=== PATIENT | female | born 1970 | race Caucasian/White ===

== ENCOUNTER 2018-11-19 11:21 | Emergency (ER) | payer OTHER ==
[~2018-11-19] VITALS: Ht 152.4 cm; Wt 77.3 kg
[~2018-11-19 11:21] MED LIST: ALBU17AE27 IH; FLUT220HFA IH; SALMH IH
[2018-11-19] MEDS ORDERED: AMLO10TA7 PO (11:29)
[2018-11-19] MEDS ORDERED: AZITHROMYCIN 250 MG TABLET PO ONE (12:30)
[2018-11-19] MEDS ORDERED: IBUPROFEN 800 MG TABLET PO ONE (12:30)
[2018-11-19 13:10] VITALS: BP 120/84
== END 2018-11-19 13:15 | disposition home or self-care (01) ==
LOC: EMS 11:24
DX: H66.92 Otitis media, unspecified, left ear (principal); J45.909 Unspecified asthma, uncomplicated; I10 Essential (primary) hypertension; Z98.51 Tubal ligation status; Z88.1 Allergy status to other antibiotic agents; Z91.013 Allergy to seafood

== ENCOUNTER 2021-09-22 13:21 | Emergency (ER) | payer OTHER ==
[~2021-09-22] VITALS: Ht 152.4 cm; Wt 65.9 kg
[~2021-09-22 13:21] MED LIST changes: +AMLO-258 PO; +SALM50DI2 IH; -SALMH IH
[2021-09-22] MEDS ORDERED: NAPR-1025 PO (15:54)
[2021-09-22] MEDS ORDERED: KETOROLAC TROMETHAMINE 10 MG TABLET PO ONE (16:00)
[2021-09-22 16:23] VITALS: BP 127/84
== END 2021-09-22 16:15 | disposition home or self-care (01) ==
LOC: EMS 13:21
DX: S63.502A Unspecified sprain of left wrist, initial encounter (principal); E78.00 Pure hypercholesterolemia, unspecified; I10 Essential (primary) hypertension; W19.XXXA Unspecified fall, initial encounter; Y93.89 Activity, other specified; Y92.89 Other specified places as the place of occurrence of the external cause; Y99.8 Other external cause status; Z98.890 Other specified postprocedural states
CPT/HCPCS: 99283; 99284

== ENCOUNTER 2023-03-19 09:07 | Emergency (ER) | payer OTHER ==
[~2023-03-19] VITALS: Ht 154.9 cm; Wt 68.2 kg
[~2023-03-19 09:07] MED LIST changes: +FLUT12AE18 IH; -FLUT220HFA IH; +NAPR-1025 PO
[2023-03-19 09:10] VITALS: BP 152/95; PULSE 72; RESP 16; TEMP 98.8
[2023-03-19] MEDS ORDERED: HYDR-4723 PO (11:06)
[2023-03-19] MEDS ORDERED: VALA500T42 PO (11:06)
[2023-03-19] MEDS ORDERED: PRED-554 PO (11:06)
== END 2023-03-19 11:49 | disposition home or self-care (01) ==
LOC: EMS 09:38
DX: B02.9 Zoster without complications (principal); E78.00 Pure hypercholesterolemia, unspecified; I10 Essential (primary) hypertension; Z98.890 Other specified postprocedural states; Z91.013 Allergy to seafood; Z88.8 Allergy status to other drugs, medicaments and biological substances
CPT/HCPCS: 99283

== ENCOUNTER 2023-03-30 11:00 | Emergency (ER) | payer OTHER ==
[~2023-03-30] VITALS: Ht 152.4 cm; Wt 72.7 kg
[~2023-03-30 11:00] MED LIST changes: +HYDR-4723 PO; +PRED-554 PO; +VALA500T42 PO
[2023-03-30 11:19] VITALS: TEMP 98.1
[2023-03-30] MEDS ORDERED: ONDANSETRON HCL 4 MG/2 ML VIAL IVP ONE (11:45)
[2023-03-30] MEDS ORDERED: KETOROLAC TROMETHAMINE 30 MG/ML VIAL IVP ONE (11:45)
[2023-03-30] MEDS ORDERED: SODIUM CHLORIDE 0.9% 1,000 ML IV ONE ×2 (11:45→12:45)
[2023-03-30 11:55] LABS: BASOPHILS % (AUTO) 0.7 % (0.0-2.0); HEMATOCRIT 45.6 % (36-46); HEMOGLOBIN 15.4 g/dL (12.0-16.0); LYMPHOCYTES # (AUTO) 4.2 K/uL (1.0-4.8); LYMPHOCYTES % (AUTO) 33.6 % (22.0-44.0); MEAN CORPUSCULAR HEMOGLOBIN 30.8 pg (26.0-34.0); MEAN CORPUSCULAR HGB CONC 33.7 G/dL (31.0-37.0); MEAN CORPUSCULAR VOLUME 91 fL (80-100); MONOCYTES # (AUTO) 1.2 K/uL (0.1-1.0); MONOCYTES % (AUTO) 9.3 % (2.0-9.0); NEUTROPHILS # (AUTO) 6.7 K/uL (1.8-7.7); NEUTROPHILS % (AUTO) 53.4 % (40.0-70.0); PLATELET COUNT (AUTO) 316 K/uL (150-450); WHITE BLOOD COUNT (AUTO) 12.6 K/uL (4.5-11.0)
[2023-03-30 12:01] LABS: CALCIUM, TOTAL 8.9 mg/dL (8.8-10.5); CREATININE 1.06 mg/dL (0.60-1.30); POTASSIUM 3.4 mmol/L (3.5-5.1)
[2023-03-30 13:08] LABS: APPEARANCE,URINE HAZY (CLEAR); BILIRUBIN,URINE NEGATIVE (NEGATIVE); COLOR,URINE COLORLESS (YELLOW); GLUCOSE, URINE (UA) NEGATIVE (NEGATIVE); KETONES,URINE NEGATIVE (NEGATIVE); LEUKOCYTE ESTERASE ,URINE LARGE (NEGATIVE); NITRATE,URINE NEGATIVE (NEGATIVE); OCCULT BLOOD,URINE NEGATIVE (NEGATIVE); PH,URINE 6.5 (5.0-8.0); PROTEIN,URINE NEGATIVE (NEGATIVE); SPECIFIC GRAVITIY, URINE 1.003 (1.003-1.030); UROBILINOGEN,URINE <=1.0 mg/dL (<=1.0)
[2023-03-30 13:31] LABS: BACTERIA,URINE Few /HPF (None Seen); RBC,URINE None Seen /HPF (0-2); SQUAMOUS EPITHELIAL CELL,UR Few /LPF (None Seen)
[2023-03-30] MEDS ORDERED: IBUP-1492 PO (13:43)
[2023-03-30] MEDS ORDERED: ONDA-104 PO (13:43)
[2023-03-30] MEDS ORDERED: CIPR500T10 PO (13:43)
[2023-03-30 13:56] VITALS: BP 137/82; PULSE 88; RESP 18
== END 2023-03-30 14:00 | disposition home or self-care (01) ==
LOC: EMS 11:00
DX: N12 Tubulo-interstitial nephritis, not specified as acute or chronic (principal); E78.00 Pure hypercholesterolemia, unspecified; I10 Essential (primary) hypertension; Z98.890 Other specified postprocedural states; Z91.013 Allergy to seafood; Z88.8 Allergy status to other drugs, medicaments and biological substances
CPT/HCPCS: 99285; 74176; 96374; 96361; 96375; 80048; 81001; 85025; 36415; 87086; 87186; J1885; J2405; J7030

== ENCOUNTER 2023-06-24 14:55 | Emergency (ER) | payer OTHER ==
[~2023-06-24] VITALS: Ht 152.4 cm; Wt 75.0 kg
[~2023-06-24 14:55] MED LIST changes: +CIPR500T10 PO; +IBUP-1492 PO; -NAPR-1025 PO; +ONDA-104 PO
[2023-06-24 16:09] LABS: COVID AG,FIA SOURCE NASAL SWAB
[2023-06-24 16:20] LABS: ANION GAP 9 mmol/L (8-16); CALCIUM, TOTAL 9.7 mg/dL (8.8-10.5); CARBON DIOXIDE 28 mmol/L (22-29); CHLORIDE 104 mmol/L (98-107); GLOMERULAR FILTR. RATE CALC > 60 mL/min (>60); GLUCOSE,RANDOM 93 mg/dL (70-110); POTASSIUM 3.2 mmol/L (3.5-5.1); SODIUM SERUM 141 mmol/L (136-145); UREA NITROGEN, BLOOD 9 mg/dL (7-18)
[2023-06-24 16:33] LABS: ALANINE AMINOTRANSFERASE 22 U/L (12-78); ALBUMIN 4.4 g/dL (3.4-5.0); ALKALINE PHOSPHATASE 82 U/L (46-116); ASPARTATE AMINOTRANSFERASE 21 U/L (15-37); BILIRUBIN,TOTAL 0.5 mg/dL (0.1-1.0); LIPASE 55 U/L (16-77); TOTAL PROTEIN, SERUM 7.7 g/dL (6.4-8.2)
[2023-06-24 16:34] LABS: TROPONIN I-HIGH SENSITIVITY 5 ng/L (<51)
[2023-06-24 16:37] LABS: SARS-COV2 (COVID) ANTIGEN,FIA Negative (Negative)
[2023-06-24 16:50] LABS: BASOPHILS % (AUTO) 0.9 % (0.0-2.0); EOSINOPHILS % (AUTO) 3.3 % (1.0-6.0); HEMOGLOBIN 13.5 g/dL (12.0-16.0); LYMPHOCYTES # (AUTO) 3.7 K/uL (1.0-4.8); LYMPHOCYTES % (AUTO) 41.7 % (22.0-44.0); MEAN CORPUSCULAR HEMOGLOBIN 30.3 pg (26.0-34.0); MEAN CORPUSCULAR HGB CONC 33.6 G/dL (31.0-37.0); MEAN CORPUSCULAR VOLUME 90 fL (80-100); MONOCYTES # (AUTO) 0.8 K/uL (0.1-1.0); MONOCYTES % (AUTO) 8.8 % (2.0-9.0); NEUTROPHILS # (AUTO) 4.1 K/uL (1.8-7.7); NEUTROPHILS % (AUTO) 45.3 % (40.0-70.0); PLATELET COUNT (AUTO) 221 K/uL (150-450); RED BLOOD CELL COUNT(AUTO) 4.44 MIL/uL (4.00-5.20); RED CELL DISTRIBUTION WIDTH 12.6 % (11.5-14.5)
[2023-06-24 19:03] VITALS: TEMP 98.1
[2023-06-24 19:26] LABS: APPEARANCE,URINE CLEAR (CLEAR); BILIRUBIN,URINE NEGATIVE (NEGATIVE); COLOR,URINE COLORLESS (YELLOW); GLUCOSE, URINE (UA) NEGATIVE (NEGATIVE); KETONES,URINE NEGATIVE (NEGATIVE); LEUKOCYTE ESTERASE ,URINE NEGATIVE (NEGATIVE); NITRATE,URINE NEGATIVE (NEGATIVE); OCCULT BLOOD,URINE NEGATIVE (NEGATIVE); PROTEIN,URINE NEGATIVE (NEGATIVE); SPECIFIC GRAVITIY, URINE 1.005 (1.003-1.030); UROBILINOGEN,URINE <=1.0 mg/dL (<=1.0)
[2023-06-24 20:02] LABS: BACTERIA,URINE None Seen /HPF (None Seen); RBC,URINE None Seen /HPF (0-2); SQUAMOUS EPITHELIAL CELL,UR Few /LPF (None Seen); WBC,URINE None Seen /HPF (0-5)
[2023-06-24] MEDS ORDERED: ATOR40TA71 PO (20:13)
[2023-06-24] MEDS ORDERED: ASPI-1444 PO (20:13)
[2023-06-24] MEDS ORDERED: LISI20TA24 PO (20:13)
[2023-06-24] MEDS ORDERED: HYDR-4527 PO (20:13)
[2023-06-24] MEDS ORDERED: FLUT12AE20 IH (20:13)
[2023-06-24] MEDS ORDERED: ZOLP-280 PO (20:13)
[2023-06-24] MEDS: ASPIRIN 325 MG TABLET PO ONE (20:21)
[2023-06-24] MEDS: ACETAMINOPHEN 500 MG TABLET PO ONE (20:22)
[2023-06-24 20:56] LABS: TROPONIN I-HIGH SENSITIVITY 7 ng/L (<51)
[2023-06-24] MEDS ORDERED: ASPI325T87 PO (21:32)
[2023-06-24 21:56] VITALS: BP 140/75; PULSE 75; RESP 20
== END 2023-06-24 22:06 | disposition home or self-care (01) ==
LOC: EMS 15:12
DX: R07.89 Other chest pain (principal); R42 Dizziness and giddiness; E78.00 Pure hypercholesterolemia, unspecified; I10 Essential (primary) hypertension; Z88.8 Allergy status to other drugs, medicaments and biological substances; Z91.013 Allergy to seafood; Z98.890 Other specified postprocedural states; Z20.822 Contact with and (suspected) exposure to COVID-19
CPT/HCPCS: 71045; 80053; 81001; 83690; 84484; 85025; 93005; 99285; 36415-L1; 36415-TC

== ENCOUNTER 2024-01-30 11:36 | Emergency (ER) | payer MEDICAID, OTHER ==
[~2024-01-30] VITALS: Ht 152.4 cm; Wt 77.3 kg
[~2024-01-30 11:36] MED LIST changes: -ALBU17AE27 IH; +ASPI-1444 PO; +ASPI325T87 PO; +ATOR40TA71 PO; -CIPR500T10 PO; -FLUT12AE18 IH; +FLUT12AE20 IH; +HYDR-4527 PO; -HYDR-4723 PO; +LISI20TA24 PO; -PRED-554 PO; -VALA500T42 PO; +ZOLP-280 PO
[2024-01-30 11:45] VITALS: TEMP 98.7
[2024-01-30] MEDS ORDERED: LISI-893 PO (11:46)
[2024-01-30] MEDS ORDERED: EPIN0.3P19 IM (12:50)
[2024-01-30] MEDS ORDERED: TAMS0.4C94 PO (12:50)
[2024-01-30] MEDS ORDERED: TRAZ-257 PO (12:50)
[2024-01-30 12:58] LABS: BASOPHILS % (AUTO) 1.3 % (0.0-2.0); EOSINOPHILS % (AUTO) 2.6 % (1.0-6.0); HEMATOCRIT 45.5 % (36-46); LYMPHOCYTES # (AUTO) 2.4 K/uL (1.0-4.8); LYMPHOCYTES % (AUTO) 38.8 % (22.0-44.0); MEAN CORPUSCULAR HEMOGLOBIN 30.4 pg (26.0-34.0); MEAN CORPUSCULAR HGB CONC 33.1 G/dL (31.0-37.0); MEAN CORPUSCULAR VOLUME 92 fL (80-100); MONOCYTES # (AUTO) 0.6 K/uL (0.1-1.0); MONOCYTES % (AUTO) 10.6 % (2.0-9.0); NEUTROPHILS # (AUTO) 2.9 K/uL (1.8-7.7); NEUTROPHILS % (AUTO) 46.7 % (40.0-70.0); PLATELET COUNT (AUTO) 271 K/uL (150-450); RED BLOOD CELL COUNT(AUTO) 4.95 MIL/uL (4.00-5.20); RED CELL DISTRIBUTION WIDTH 12.9 % (11.5-14.5); WHITE BLOOD COUNT (AUTO) 6.1 K/uL (4.5-11.0)
[2024-01-30 13:05] LABS: ANION GAP 10 mmol/L (8-16); CARBON DIOXIDE 30 mmol/L (22-29); CHLORIDE 102 mmol/L (98-107); CREATININE 0.77 mg/dL (0.60-1.30); GLOMERULAR FILTR. RATE CALC > 60 mL/min (>60); GLUCOSE,RANDOM 110 mg/dL (70-110); SODIUM SERUM 142 mmol/L (136-145); UREA NITROGEN, BLOOD 9 mg/dL (7-18)
[2024-01-30 13:07] LABS: LIPASE 42 U/L (16-77)
[2024-01-30] MEDS: ONDANSETRON HCL 4 MG/2 ML VIAL IVP ONE (13:11)
[2024-01-30] MEDS: KETOROLAC TROMETHAMINE 30 MG/ML VIAL IVP ONE (13:11)
[2024-01-30] MEDS: SODIUM CHLORIDE 0.9% 1,000 ML IV ONE (13:11)
[2024-01-30 13:15] LABS: APPEARANCE,URINE HAZY (CLEAR); BILIRUBIN,URINE NEGATIVE (NEGATIVE); COLOR,URINE YELLOW (YELLOW); GLUCOSE, URINE (UA) NEGATIVE (NEGATIVE); KETONES,URINE NEGATIVE (NEGATIVE); LEUKOCYTE ESTERASE ,URINE MODERATE (NEGATIVE); NITRATE,URINE NEGATIVE (NEGATIVE); OCCULT BLOOD,URINE NEGATIVE (NEGATIVE); PH,URINE 6.5 (5.0-8.0); PROTEIN,URINE TRACE mg/dL (NEGATIVE); SPECIFIC GRAVITIY, URINE 1.016 (1.003-1.030); UROBILINOGEN,URINE <=1.0 mg/dL (<=1.0)
[2024-01-30 13:26] LABS: RBC,URINE None Seen /HPF (0-2)
[2024-01-30 13:27] LABS: BACTERIA,URINE None Seen /HPF (None Seen); SQUAMOUS EPITHELIAL CELL,UR Few /LPF (None Seen)
[2024-01-30] MEDS: POTASSIUM CHLORIDE 20 MEQ ER TABLET PO ONE (14:47)
[2024-01-30] MEDS ORDERED: ONDA-104 PO (15:25)
[2024-01-30 15:45] VITALS: BP 129/71; PULSE 72; RESP 16; O2SAT 99
== END 2024-01-30 16:00 | disposition home or self-care (01) ==
LOC: EMS 11:36
DX: R19.7 Diarrhea, unspecified (principal); R11.2 Nausea with vomiting, unspecified; R10.9 Unspecified abdominal pain; E87.6 Hypokalemia; J45.909 Unspecified asthma, uncomplicated; I10 Essential (primary) hypertension; E78.5 Hyperlipidemia, unspecified; Z88.1 Allergy status to other antibiotic agents; Z91.013 Allergy to seafood
CPT/HCPCS: 99285; 74176; 96374; 96361; 96375; 80048; 81001; 83690; 85025; 36415; 87086; 87186; J1885; J2405; J7030